=== PATIENT | female | born 1945 | race Caucasian/White ===

== ENCOUNTER → 2016-04-14 | Outpatient (CLI) | payer OTHER | LOC: CIMAGING 11:27 | PROVIDERS: ATTEND Family Medicine | DX: J98.4 Other disorders of lung (principal) | CPT/HCPCS: 71020-PO ==

== ENCOUNTER 2016-04-22 15:08 | Emergency (ER) | payer OTHER ==
[2016-04-22 15:52] VITALS: RESP 16; TEMP 97.7
--- NOTE | 2016-04-22 16:25 | UCPHY ---
H & P Time Seen by Provider: 04/22/16 15:22 Patient Type: Established HPI/ROS: This patient presents with a chief complaint of left hip pain which began after fall at about noon. She is unable to bear weight since the injury occurred. She admits to drinking alcohol since this morning. She has had several recent falls. Past Medical/Surgical History: Back surgery Smoking Status: Current every day smoker Physical Exam: This is an asthenic female who is moderately uncomfortable. She is alert and appropriate. There is bruising about the left high involving both the infra and super infraorbital rims with mild swelling and only mild tenderness. There is no obvious deformity. The infraorbital nerve is intact. There is no tenderness of the neck, back, chest or abdomen. There is tenderness over the greater trochanter and over the inguinal region on the left. Constitutional: Initial Vital Signs Temperature (C) 36.5 C 04/22/16 15:30 Heart Rate 72 04/22/16 15:30 Respiratory Rate 16 04/22/16 15:30 Blood Pressure 118/65 04/22/16 15:30 O2 Sat (%) 95 04/22/16 15:30 O2 Delivery Mode Room Air Allergies/Adverse Reactions: No Known Allergies Allergy (Verified 04/22/16 15:45) Home Medications: Medication Instructions Recorded Valium 11/04/14 Hydrocodon-Acetaminophen 5-325 04/22/16 Medical Decision Making - Diagnostics Imaging: X-rays show a femoral neck fracture with mild angulation. ED Course/Re-evaluation: An IV was started and the patient was hydrated with normal saline. She was given 6 mg of morphine in divided doses for pain control and advised to eat or drink nothing until told that it was safe. The patient was monitored throughout her stay in the department. She remained stable and in good condition throughout. An alcohol level was not done here since our lab does not do these. The patient requested admission at [facility] as opposed to [facility]. Arrangements were made with the emergency department physician at [facility] where they are expecting her. Differential Diagnosis: Although this patient does not appear to be intoxicated this time I suspect that she drinks a lot and frequently. - Data Points Laboratory Results: Laboratory Results 04/22/16 16:35 04/22/16 16:35 02/25/17 02/25/17 16:35 16:35 WBC 7.41 10^3/uL 10^3/uL (3.80-9.50) RBC 4.27 10^6/uL 10^6/uL (4.18-5.33) Hgb 14.4 g/dL g/dL (12.6-16.3) Hct 42.4 % % (38.0-47.0) MCV 99.3 fL fL (81.5-99.8) MCH 33.7 pg pg (27.9-34.1) MCHC 34.0 g/dL g/dL (32.4-36.7) RDW 15.6 % H % (11.5-15.2) Plt Count 312 10^3/uL 10^3/uL (150-400) MPV 8.8 fL fL (8.7-11.7) Neut % (Auto) 62.5 % % (39.3-74.2) Lymph % (Auto) 27.0 % % (15.0-45.0) [place] % (Auto) 8.0 % % (4.5-13.0) Eos % (Auto) 1.5 % % (0.6-7.6) Baso % (Auto) 0.7 % % (0.3-1.7) Nucleat RBC Rel Count 0.0 % % (0.0-0.2) Absolute Neuts (auto) 4.64 10^3/uL 10^3/uL (1.70-6.50) Absolute Lymphs (auto) 2.00 10^3/uL 10^3/uL (1.00-3.00) Absolute Monos (auto) 0.59 10^3/uL 10^3/uL (0.30-0.80) Absolute Eos (auto) 0.11 10^3/uL 10^3/uL (0.03-0.40) Absolute Basos (auto) 0.05 10^3/uL 10^3/uL (0.02-0.10) Absolute Nucleated RBC 0.00 10^3/uL 10^3/uL (0-0.01) Immature Gran % 0.3 % % (0.0-1.1) Immature Gran # 0.02 10^3/uL 10^3/uL (0.00-0.10) Sodium 135 mEq/L mEq/L (134-144) Potassium 4.2 mEq/L mEq/L (3.5-5.2) Chloride 100 mEq/L mEq/L (97-110) Carbon Dioxide 22 mEq/l mEq/l (22-31) Anion Gap 13 mEq/L mEq/L (8-16) BUN 15 mg/dL mg/dL (7-23) Creatinine 0.8 mg/dL mg/dL (0.6-1.0) Estimated GFR > 60 Glucose 73 mg/dL mg/dL (70-100) Calcium 10.2 mg/dL mg/dL (8.5-10.4) Total Bilirubin 0.6 mg/dL mg/dL (0.1-1.4) AST 39 IU/L IU/L (14-46) ALT 29 IU/L IU/L (9-52) Alkaline Phosphatase 77 IU/L IU/L (38-126) Total Protein 7.3 g/dL g/dL (6.3-8.2) Albumin 4.3 g/dL g/dL (3.5-5.0) Ethyl Alcohol Pending Medications Given: Discontinued Medications Sodium Chloride (Ns) 1,000 mls @ 0 mls/hr IV ONCE ONE PRN Reason: Wide Open Stop: 04/22/16 16:42 Last Admin: 04/22/16 16:42 Dose: 1,000 mls Morphine Sulfate (Morphine) 2 mg IVP EDNOW ONE Stop: 04/22/16 16:42 Last Admin: 04/22/16 16:45 Dose: 2 mg Morphine Sulfate (Morphine) 2 mg IVP EDNOW ONE Stop: 04/22/16 17:08 Last Admin: 04/22/16 17:15 Dose: 2 mg Departure - Departure Disposition: Acute Care Hospital Not [facility] Clinical Impression: Hip fracture Qualifiers: Encounter type: initial encounter Fracture type: closed Laterality: right Qualified Code(s): S72.001A - Fracture of unspecified part of neck of right femur, initial encounter for closed fracture Condition: Good Referrals: Valentina Stephenson MD [Primary Care Provider] - As per Instructions - PQRS PQRS Measurement: Not applicable
[2016-04-22] MEDS ORDERED: NS 1,000 ML IV ONE (16:41)
[2016-04-22 16:43] LABS: % IMMATURE GRANULYOCYTES 0.3 % (0.0-1.1); ABSOLUTE IMMATURE GRANULOCYTES 0.02 10^3/uL (0.00-0.10); ADD DIFF? NO; ADD MORPH? NO; ADD SCAN? NO; ATYPICAL LYMPHOCYTE FLAG 10 (0-99); FRAGMENT RBC FLAG 0 (0-99); HEMATOCRIT 42.4 % (38.0-47.0); HEMOGLOBIN 14.4 g/dL (12.6-16.3); LEFT SHIFT FLG 0 (0-99); LIPEMIA HEMOLYSIS FLAG 90 (0-99); MEAN CELL HEMOGLOBIN 33.7 pg (27.9-34.1); MEAN CELL VOLUME 99.3 fL (81.5-99.8); MEAN PLATELET VOLUME 8.8 fL (8.7-11.7); PLATELET CLUMPS FLAG 10 (0-99); PLATELET COUNT 312 10^3/uL (150-400); RED BLOOD CELL COUNT 4.27 10^6/uL (4.18-5.33); RED CELL DISTRIBUTION WIDTH 15.6 % (11.5-15.2)
[2016-04-22 16:57] LABS: ALANINE AMINOTRANSFERASE 29 IU/L (9-52); ALBUMIN 4.3 g/dL (3.5-5.0); ALKALINE PHOSPHATASE 77 IU/L (38-126); ANION GAP 13 mEq/L (8-16); ASPARTATE AMINOTRANSFERASE 39 IU/L (14-46); BILIRUBIN,TOTAL 0.6 mg/dL (0.1-1.4); CALCIUM 10.2 mg/dL (8.5-10.4); CARBON DIOXIDE 22 mEq/l (22-31); CHLORIDE 100 mEq/L (97-110); CREATININE 0.8 mg/dL (0.6-1.0); GLOMERULAR FILTRATION RATE > 60; GLUCOSE 73 mg/dL (70-100); POTASSIUM 4.2 mEq/L (3.5-5.2); SODIUM 135 mEq/L (134-144); TOTAL PROTEIN 7.3 g/dL (6.3-8.2)
[2016-04-22 18:11] VITALS: BP 151/81; PULSE 68; O2SAT 90
== END 2016-04-22 17:55 | disposition short-term general hospital (02) ==
LOC: CED 15:08 → UNDOADMIN 16:18 → CEDHOLD 16:18 → CED 17:55
DX: S72.001A Fracture of unspecified part of neck of right femur, initial encounter for closed fracture (principal); W19.XXXA Unspecified fall, initial encounter; F17.200 Nicotine dependence, unspecified, uncomplicated
CPT/HCPCS: 73502; 96361; 96374; 96376; G0463; 80053-PO; 85025-PO

== ENCOUNTER → 2017-04-27 | Outpatient (CLI) | payer OTHER | LOC: CIMAGING 10:09 | PROVIDERS: ATTEND Family Medicine | DX: Z47.1 Aftercare following joint replacement surgery (principal); M25.552 Pain in left hip; Z96.642 Presence of left artificial hip joint | CPT/HCPCS: 73502-PO ==

== ENCOUNTER → 2018-05-21 | Outpatient (CLI) | payer OTHER | LOC: EMCIMAGING 13:11 | PROVIDERS: ATTEND Family Medicine | DX: G31.9 Degenerative disease of nervous system, unspecified (principal); R90.82 White matter disease, unspecified | CPT/HCPCS: 70553-PN; 71250-PN ==